=== PATIENT | male | born 1990 | race Caucasian/White ===

== ENCOUNTER → 2018-10-02 | Outpatient (CLI) | payer OTHER ==
--- NOTE | 2018-10-02 16:57 | REP ---
HIDA SCAN WITH GALLBLADDER EJECTION FRACTION: Following the intravenous administration of 6.5 mCi of technetium 99m mebrofenin, multiple images of the right upper quadrant are performed every 5 minutes for a period of one hour. The gallbladder is visualized at about 20 minutes post injection. There is biliary to bowel transit at 15 to 20 minutes post injection with no scintigraphic evidence of cholecystitis. At the one hour missy, 10 ounces of Ensure Enlive was ingested and further imaging performed for one hour. Gallbladder ejection fraction is calculated to be 41% which is normal. IMPRESSION: Normal gallbladder ejection fraction at 41%. Electronically Signed by Chris Roque MD 10/03/2018 09:20 A
== END ==
LOC: M RAD 07:58
PROVIDERS: ATTEND Physician Assistant
DX: R10.11 Right upper quadrant pain (principal)
CPT/HCPCS: 78227; A9537; J2805